=== PATIENT | female | born 1990 ===

== ENCOUNTER 2020-02-26 14:07 | Emergency (ER) | payer OTHER ==
--- NOTE | 2020-02-26 14:38 | EDM.PDOC ---
ED HPI GENERAL MEDICAL PROBLEM - General Stated Complaint: EXPOSURE;COVID 19 Time Seen by Provider: 02/26/20 14:27 - History of Present Illness INITIAL COMMENTS - FREE TEXT/NARRATIVE: History of present illness: 29yo female presenting with concerns for risk of exposure to coronavirus. Apparently a close contact was recently diagnosed with coronavirus. Patient reports that she recently trip took a trip to [place] for 15 days and just got back several days ago. Apparently she was exposed 8 days ago to this family member. Neither libertarian were masked at that time. Has noticed loss of smell, loss of taste and does have a mild cough, all of which started 2 to 3 days ago. Has not had any fever or difficulty breathing. No chest pain. Review of systems: As per history of present illness and below otherwise all systems reviewed and negative. Past medical history: As per history of present illness and as reviewed below otherwise noncontributory. Surgical history: As per history of present illness and as reviewed below otherwise noncontributor y. Social history: No reported history of drug or alcohol abuse. No tobacco Family history: As per history of present illness and as reviewed below otherwise noncontributory. Physical exam: GEN: no acute distress, well appearing HEENT: Atraumatic, normocephalic Neck: supple. Lungs: No respiratory distress. Heart: RRR Extremities: Atraumatic. Neurovascularly intact. Neuro: Awake, alert, oriented. Neuro Exam nonfocal. Skin: warm, dry, no lesions Diagnostics: COVID-19 swabpositive Therapeutics: [] MDM: Impression: [] Plan: [] Definitive disposition and diagnosis as appropriate pending reevaluation and review of above. - Related Data Allergies Allergy/AdvReac Type Severity Reaction Status Date / Time No Known Allergies Allergy Verified 02/26/20 15:34 Home Meds: Home Meds . [No Known Home Meds] 02/26/20 [History] ED ROS GENERAL - Review of Systems Review Of Systems: See Below (See HPI) ED EXAM, GENERAL - Physical Exam Exam: See Below (See HPI) Course - Vital Signs Text/Narrative:: Recent travel and exposure to coronavirus positive family member. Patient with mild symptoms. Coronavirus positive here today. No hypoxia. Patient stable for outpatient management. Last Recorded V/S: Last Vital Signs Temp 96.4 F L 02/26/20 15:27 Pulse 89 02/26/20 15:27 Resp 18 02/26/20 15:27 BP 111/76 02/26/20 15:27 Pulse Ox 97 02/26/20 15:27 - Orders/Labs/Meds Labs: Laboratory Tests 02/26/20 Range/Units 14:55 COVID-19 (ANIKA) POSITIVE H (NEGATIVE) - Re-Assessments/Exams Free Text/Narrative Re-Assessment/Exam: 02/26/20 16:55 Results discussed with patient and family member at the bedside. Discussed plan for outpatient treatment given stable vital signs. Discussed need for self- isolation for 14 days after symptom resolution. Patient voiced understanding. Departure - Departure Time of Disposition: 16:56 Disposition: Home, Self-Care 01 Clinical Impression: COVID-19 - Discharge Information Instructions: COVID-19 Frequently Asked Questions, COVID-19: How to Protect Yourself and Others - CDC, Prevent the Spread of COVID-19 if You Are Sick - [facility] Referrals: PCP,None [Primary Care Provider] - Forms: ED Department Discharge, ED Return to Work/School Form Additional Instructions: He will need to self isolate for 14 days after the resolution of your symptoms. Please check your temperature daily. Please check your oxygen level on a pulse oximeter, which you can order online. If you develop high fevers, difficulty breathing, or any other concerning symptoms, please return to the emergency department immediately. The following information is given to patients seen in the emergency department who are being discharged to home. This information is to outline your options for follow-up care. We provide all patients seen in our emergency department with a follow-up referral. The need for follow-up, as well as the timing and circumstances, are variable depending upon the specifics of your emergency department visit. If you don't have a primary care physician on staff, we will provide you with a referral. We always advise you to contact your personal physician following an emergency department visit to inform them of the circumstance of the visit and for follow-up with them and/or the need for any referrals to a consulting specialist. The emergency department will also refer you to a specialist when appropriate. This referral assures that you have the opportunity for follow-up care with a specialist. All of these measure are taken in an effort to provide you with optimal care, which includes your follow-up. Under all circumstances we always encourage you to contact your private physician who remains a resource for coordinating your care. When calling for follow-up care, please make the office aware that this follow-up is from your recent emergency room visit. If for any reason you are refused follow-up, please contact the [facility] Emergency Department at and asked to speak to the emergency department charge nurse. [facility] [address] [place] [id number] [facility] [address] [place] [id number]
== END 2020-02-26 16:50 | disposition home or self-care (01) ==
LOC: MW.ED 14:07
DX: U07.1 COVID-19 (principal)
CPT/HCPCS: 99282; 99283; U0002

== ENCOUNTER 2020-03-05 20:07 | Emergency (ER) | payer OTHER ==
--- NOTE | 2020-03-05 20:34 | EDM.PDOC ---
ED HPI GENERAL MEDICAL PROBLEM - General Chief Complaint: Respiratory Problem Stated Complaint: COVID, NOT FEELING WELL Time Seen by Provider: 03/05/20 20:30 Source of Information: Reports: Patient History Limitations: Reports: No Limitations - History of Present Illness INITIAL COMMENTS - FREE TEXT/NARRATIVE: HISTORY AND PHYSICAL: History of present illness: Patient is a 29-year-old female who presents to the emergency room requesting evaluation as she has had dizziness and shortness of breath. Patient had tested positive for COVID-19 on 02/26/2020. She states she has had these symptoms since her diagnosis but was concerned as they have not resolved. She was informed that her symptoms should be resolved and she can return to her daily routine as of 03/10/2020. Describes the dizziness as mild but fairly constant, does not change with ambulation or head movement. Denies hitting her head or having any loss of consciousness. When she is laying down flat to get ready for bed she has increased shortness of breath. Patient denies any fever, chills, headache, change in vision, syncope or near syncope. Denies any chest pain, back pain or cough. Denies any abdominal pain, nausea, vomiting, diarrhea, constipation or dysuria. Patient has been eating and drinking appropriately. [employer] was used as she is LAO speaking Review of systems: As per history of present illness and below otherwise all systems reviewed and negative. Past medical history: As per history of present illness and as reviewed below otherwise noncontributory. Surgical history: As per history of present illness and as reviewed below otherwise noncontributory. Social history: See social history for further information Family history: As per history of present illness and as reviewed below otherwise noncontributory. Physical exam: General: Well developed and well nourished 29 year old female. Alert and orientated. Nontoxic appearing and in no acute distress. HEENT: Atraumatic, normocephalic, pupils equal and reactive bilaterally, negative for conjunctival pallor or scleral icterus, mucous membranes moist, TMs normal bilaterally, throat clear, neck supple, nontender, trachea midline. No drooling or trismus noted. No meningeal signs. No hot potato voice noted. Lungs: Clear to auscultation, breath sounds equal bilaterally, chest nontender. Heart: S1S2, regular rate and rhythm without overt murmur Abdomen: Soft, nondistended, nontender. Negative for masses or costovertebral tenderness. Pelvis: Stable nontender. Skin: Intact, warm, dry. No lesions or rashes noted. Extremities: Atraumatic, moves all extremities per self without difficulty or deficits, negative for cords or calf pain. Neurovascular unremarkable. Neuro: Awake, alert, oriented. Cranial nerves II through XII unremarkable. Cerebellum unremarkable. Motor and sensory unremarkable throughout. Exam nonfocal. Notes: Vital signs are within normal limits. Her physical exam is within normal limits. We will get a chest x-ray to make sure she has not developed an underlying pneumonia. She has been eating and drinking appropriately and offers no other complaints or concerns other than her symptoms not resolving, I do not feel she needs lab work at this time.Supportive care measures were reviewed and discussed. Voices understanding and is agreeable to plan of care. Denies any further questions or concerns at this time. Diagnostics: CXR Therapeutics: Meclizine, Azithromycin Prescription: Azithromycin Impression: COVID-19 Plan: 1. Please stay in quarantine as directed - you are considered contagious. Your vital signs and oxygen saturation are well enough that you were able to monitor your symptoms at home. Continue to monitor for trouble breathing, new confu carmelo or inability to arouse, bluish lips or face or any of the other symptoms we discussed -if this occurs please return to the emergency room. 2. Take the medications as we prescribed as discussed. You can take NyQuil during the evening to help get a restful night sleep. 3. You may alternate Tylenol and ibuprofen as needed for pain and fever management. 4. The [facility] department will be calling you and following up with you. The [place] COVID 19 Hotline phone number , They are open Friday - Friday 7am - 7pm. Follow up with the [facility] for re-evaluation and re-testing after the 2 week quarantine and discuss when you should be seen. Definitive disposition and diagnosis as appropriate pending reevaluation and review of above. - Related Data Allergies Allergy/AdvReac Type Severity Reaction Status Date / Time No Known Allergies Allergy Verified 03/05/20 21:03 Home Meds: Home Meds Azithromycin [Zithromax] 1 dose PO DAILY 5 Days #6 tab 03/05/20 [Rx] Past Medical History - Past Health History Medical/Surgical History: Denies Medical/Surgical History ED ROS GENERAL - Review of Systems Review Of Systems: Comprehensive ROS is negative, except as noted in HPI. ED EXAM, GENERAL - Physical Exam Exam: See Below (See dictation) Course - Vital Signs Last Recorded V/S: Last Vital Signs Temp 97.4 F 03/05/20 21:00 Pulse 82 03/05/20 21:00 Resp 16 03/05/20 21:00 BP 119/76 03/05/20 21:00 Pulse Ox 97 03/05/20 21:00 - Orders/Labs/Meds Meds: Medications Discontinued Medications Generic Name Dose Route Start Last Admin Trade Name Freq PRN Reason Stop Dose Admin Azithromycin 500 mg 03/05/20 21:39 03/05/20 21:58 Zithromax PO 03/05/20 21:40 500 mg NOW STA Administration Meclizine HCl 25 mg 03/05/20 21:02 03/05/20 21:30 Antivert PO 03/05/20 21:03 25 mg ONETIME ONE Administration Departure - Departure Time of Disposition: 21:39 Disposition: Home, Self-Care 01 Clinical Impression: COVID-19 - Discharge Information Prescriptions: Azithromycin [Zithromax] 1 dose PO DAILY 5 Days #6 tab Instructions: COVID-19 Frequently Asked Questions Referrals: PCP,None [Primary Care Provider] - Forms: ED Department Discharge Additional Instructions: The following information is given to patients seen in the emergency department who are being discharged to home. This information is to outline your options for follow-up care. We provide all patients seen in our emergency department with a follow-up referral. The need for follow-up, as well as the timing and circumstances, are variable depending upon the specifics of your emergency department visit. If you don't have a primary care physician on staff, we will provide you with a referral. We always advise you to contact your personal physician following an emergency department visit to inform them of the circumstance of the visit and for follow-up with them and/or the need for any referrals to a consulting specialist. The emergency department will also refer you to a specialist when appropriate. This referral assures that you have the opportunity for follow-up care with a specialist. All of these measure are taken in an effort to provide you with optimal care, which includes your follow-up. Under all circumstances we always encourage you to contact your private physician who remains a resource for coordinating your care. When calling for follow-up care, please make the office aware that this follow-up is from your recent emergency room visit. If for any reason you are refused follow-up, please contact the [facility] Emergency Department at and asked to speak to the emergency department charge nurse. [facility] [address] [place] [id number] [facility] [address] [place] [id number] Thank you for choosing the [facility] emergency department in [place] for your medical needs today. It was a pleasure caring for you. You were seen in the emergency department for assessment of COVID 19 symptoms. 1. Please stay in quarantine as directed - you are considered contagious. Your vital signs and oxygen saturation are well enough that you were able to monitor your symptoms at home. Continue to monitor for trouble breathing, new confusion or inability to arouse, bluish lips or face or any of the other symptoms we discussed -if this occurs please return to the emergency room. 2. Take the medications as we prescribed as discussed. You can take NyQuil during the evening to help get a restful night sleep. 3. You may alternate Tylenol and ibuprofen as needed for pain and fever management. 4. The [facility] department will be calling you and following up with you. The [place] COVID 19 Hotline phone number , They are open Friday - Friday 7am - 7pm. Follow up with the [facility]piratory [facility] for re-evaluation and re-testing after the 2 week quarantine and discuss when you should be seen.
[2020-03-05] MEDS ORDERED: Meclizine 25 MG Tab PO ONE (21:02)
[2020-03-05] MEDS ORDERED: Azithromycin 250 MG Tab PO STA (21:39)
--- NOTE | 2020-03-05 22:53 | CR ---
Clinical indication : COVID-19 for 1 week. Shortness of breath. FINDINGS: The cardiomediastinal silhouette, lung parenchyma, pulmonary vasculature and pleural surfaces are all normal in appearance. The bony thorax appears intact. IMPRESSION: Negative study. Dictated by Kalin Bliss MD @ Mar 05 2020 10:50PM Signed by Dr. Kalin Bliss @ Mar 05 2020 10:51PM
== END 2020-03-05 22:11 | disposition home or self-care (01) ==
LOC: MW.ED 20:07
DX: U07.1 COVID-19 (principal)
CPT/HCPCS: 71045; 99284; A9270; 99283